=== PATIENT | male | born 1990 | race Caucasian/White ===

== ENCOUNTER 2018-01-26 12:47 | Emergency (ER) | payer SELFPAY ==
[~2018-01-26] VITALS: Ht 172.7 cm; Wt 59.0 kg
[2018-01-26 13:01] VITALS: BP 120/56; PULSE 83; RESP 20; TEMP 98.1; O2SAT 99
[2018-01-26] MEDS ORDERED: SUBO2MIS SL (13:23)
[2018-01-26 13:55] LABS: AUTOMATED NEUTROPHIL # 4.6 TH/MM3 (1.8-7.7); BASOPHIL # 0.1 TH/MM3 (0-0.2); BASOPHIL % 0.9 % (0.0-2.0); EOSINOPHIL # 0.2 TH/MM3 (0-0.4); HEMATOCRIT 37.1 % (39.0-51.0); HEMOGLOBIN 13.6 GM/DL (13.0-17.0); LYMPH % 17.9 % (9.0-44.0); LYMPHOCYTE # 1.2 TH/MM3 (1.0-4.8); MEAN CELL VOLUME 86.7 FL (80.0-100.0); MEAN CORPUSCULAR HEMOGLOBIN 31.9 PG (27.0-34.0); MEAN PLATELET VOLUME 8.7 FL (7.0-11.0); MONO % 8.9 % (0.0-8.0); MONOCYTE # 0.6 TH/MM3 (0-0.9); NEUT % 69.3 % (16.0-70.0); PLATELET COUNT 292 TH/MM3 (150-450); RED BLOOD COUNT 4.27 MIL/MM3 (4.50-5.90); RED CELL DISTRIBUTION WIDTH 13.1 % (11.6-17.2); WHITE BLOOD COUNT 6.6 TH/MM3 (4.0-11.0)
[2018-01-26 13:57] LABS: MEAN CORPUSCULAR HGB CONC 36.7 % (32.0-36.0)
[2018-01-26 14:07] LABS: ALBUMIN 3.6 GM/DL (3.4-5.0); AST (GOT) 25 U/L (15-37); BLOOD UREA NITROGEN 4 MG/DL (7-18); CHLORIDE 103 MEQ/L (98-107); CREATININE 0.75 MG/DL (0.60-1.30); GLOMERULAR FILTRATION RATE 126 ML/MIN (>89); GLUCOSE,RANDOM 90 MG/DL (74-106); SODIUM (NA) 141 MEQ/L (136-145)
[2018-01-26 14:08] LABS: ALT (GPT) 39 U/L (12-78)
[2018-01-26 14:10] LABS: ALKALINE PHOSPHATASE 46 U/L (45-117); TOTAL BILIRUBIN ADULT 0.5 MG/DL (0.2-1.0); TOTAL PROTEIN 7.7 GM/DL (6.4-8.2)
--- NOTE | 2018-01-26 14:29 | PD ---
HPI Chief Complaint: Suicide Ideation/Attempt Time Seen by Provider: 13:06 Travel History International Travel<30 days: No Contact w/Intl Traveler<30days: No Traveled to known affect area: No History of Present Illness HPI Patient is a 28 year old male who comes in because he says "I'm going to go hurt someone or clau someone." He says that he moved here from [place] after breaking up with his girlfriend, to live with his mom. He says that he was on suboxone, but he ran out. He says he was depressed, so he started using drugs again. He says that he was kicked out of his mother's apartment and now is homeless. He says he is "heroine sick," but when asked to describe symptoms, he cannot. When asked if he is suicidal, he just talks about how he is homeless and has nothing. He has no medical complaints currently. Severity is mild. PFSH Past Medical History Medical History: Denies Significant Hx Past Surgical History Surgical History: No Previous Surgery Social History Alcohol Use: No Tobacco Use: No Substance Use: No Allergies-Medications (Allergen,Severity, Reaction): Coded Allergies: No Known Allergies (Unverified , 01/26/18) Reported Meds & Prescriptions Reported Meds & Active Scripts Active Reported Suboxone Sublingual Film (Buprenorphine-Naloxone Sublingual Film) 2-0.5 Mg Film 1 Film SL Unique ID number required: Review of Systems Except as stated in HPI: all other systems reviewed are Neg General / Constitutional: No: Fever, Chills HENT: No: Headaches, Lightheadedness Cardiovascular: No: Chest Pain or Discomfort Respiratory: No: Shortness of Breath Gastrointestinal: No: Nausea, Vomiting Skin: No Rash, No Change in Pigmentation, No Lesions Neurologic: No: Weakness, Dizziness Physical Exam Narrative GENERAL: Awake and alert, in no acute distress. SKIN: Focused skin assessment warm/dry. No wounds or signs of infection. HEAD: Atraumatic. Normocephalic. EYES: Pupils equal and round. No scleral icterus. No injection or drainage. ENT: No nasal bleeding or discharge. Mucous membranes pink and moist. NECK: Trachea midline. No JVD. CARDIOVASCULAR: Regular rate and rhythm. No murmur appreciated. RESPIRATORY: No accessory muscle use. Clear to auscultation. Breath sounds equal bilaterally. GASTROINTESTINAL: Abdomen soft, non-tender, nondistended. MUSCULOSKELETAL: No obvious deformities. No clubbing. No cyanosis. No edema. NEUROLOGICAL: Awake and alert. No obvious cranial nerve deficits. Motor grossly within normal limits. Normal speech. PSYCHIATRIC: Appropriate mood and affect; insight and judgment normal. Data Data Last Documented VS Vital Signs Date Time Temp Pulse Resp B/P (MAP) Pulse Ox O2 Delivery O2 Flow Rate FiO2 01/26/18 13:01 98.1 83 20 120/56 (77) 99 Orders Orders Complete Blood Count With Diff (01/26/18 13:17) Comprehensive Metabolic Panel (01/26/18 13:17) Psych Screen (01/26/18 13:17) Drug Screen, Random Urine (01/26/18 13:17) Alcohol (Ethanol) (01/26/18 13:17) Labs Laboratory Tests Test 01/26/18 13:25 White Blood Count 6.6 TH/MM3 Red Blood Count 4.27 MIL/MM3 Hemoglobin 13.6 GM/DL Hematocrit 37.1 % Mean Corpuscular Volume 86.7 FL Mean Corpuscular Hemoglobin 31.9 PG Mean Corpuscular Hemoglobin Concent 36.7 % Red Cell Distribution Width 13.1 % Platelet Count 292 TH/MM3 Mean Platelet Volume 8.7 FL Neutrophils (%) (Auto) 69.3 % Lymphocytes (%) (Auto) 17.9 % Monocytes (%) (Auto) 8.9 % Eosinophils (%) (Auto) 3.0 % Basophils (%) (Auto) 0.9 % Neutrophils # (Auto) 4.6 TH/MM3 Lymphocytes # (Auto) 1.2 TH/MM3 Monocytes # (Auto) 0.6 TH/MM3 Eosinophils # (Auto) 0.2 TH/MM3 Basophils # (Auto) 0.1 TH/MM3 CBC Comment AUTO DIFF Differential Comment AUTO DIFF CONFIRMED Blood Urea Nitrogen 4 MG/DL Creatinine 0.75 MG/DL Random Glucose 90 MG/DL Total Protein 7.7 GM/DL Albumin 3.6 GM/DL Calcium Level 9.0 MG/DL Alkaline Phosphatase 46 U/L Aspartate Amino Transf (AST/SGOT) 25 U/L Alanine Aminotransferase (ALT/SGPT) 39 U/L Total Bilirubin 0.5 MG/DL Sodium Level 141 MEQ/L Potassium Level 3.2 MEQ/L Chloride Level 103 MEQ/L Carbon Dioxide Level 28.0 MEQ/L Anion Gap 10 MEQ/L Estimat Glomerular Filtration Rate 126 ML/MIN Urine Opiates Screen POS Urine Barbiturates Screen NEG Urine Amphetamines Screen NEG Urine Benzodiazepines Screen POS Urine Cocaine Screen POS Urine Cannabinoids Screen POS Ethyl Alcohol Level LESS THAN 3 MG/DL MDM Medical Decision Making Medical Screen Exam Complete: Yes Emergency Medical Condition: Yes Differential Diagnosis intoxication vs psychosis vs suicidal ideation Narrative Course Patient is a 28 year old male who comes in because he says he is withdrawing from heroine and he will clau someone. He says "I just can't take it anymore." Labs sent show no acute abnormalities. Tox screen positive for Benzos, opiates, cocaine, marijuana. Medically cleared for psychiatric evaluation. Diagnosis Primary Impression: Intoxication by drug Qualified Codes: F19.920 - Other psychoactive substance use, unspecified with intoxication, uncomplicated Sana Nelson MD Jan 26, 2018 14:29
[2018-01-27 07:42] VITALS: BP 124/65; PULSE 77; RESP 16; O2SAT 95
--- NOTE | 2018-01-27 12:00 | PD ---
Physical Exam Time Seen by Provider: 11:59 Narrative ARMIN Segura has evaluated the patient and cleared the patient for discharge. Data Data Last Documented VS Vital Signs Date Time Temp Pulse Resp B/P (MAP) Pulse Ox O2 Delivery O2 Flow Rate FiO2 01/27/18 07:42 77 16 124/65 (84) 95 Room Air 01/26/18 13:01 98.1 Orders Orders Complete Blood Count With Diff (01/26/18 13:17) Comprehensive Metabolic Panel (01/26/18 13:17) Psych Screen (01/26/18 13:17) Drug Screen, Random Urine (01/26/18 13:17) Alcohol (Ethanol) (01/26/18 13:17) Diet Regular Basic (01/26/18 Dinner) Diet Regular Basic (01/27/18 Breakfast) Ed Discharge Order (01/27/18 12:03) Labs Laboratory Tests Test 01/26/18 13:25 White Blood Count 6.6 TH/MM3 Red Blood Count 4.27 MIL/MM3 Hemoglobin 13.6 GM/DL Hematocrit 37.1 % Mean Corpuscular Volume 86.7 FL Mean Corpuscular Hemoglobin 31.9 PG Mean Corpuscular Hemoglobin Concent 36.7 % Red Cell Distribution Width 13.1 % Platelet Count 292 TH/MM3 Mean Platelet Volume 8.7 FL Neutrophils (%) (Auto) 69.3 % Lymphocytes (%) (Auto) 17.9 % Monocytes (%) (Auto) 8.9 % Eosinophils (%) (Auto) 3.0 % Basophils (%) (Auto) 0.9 % Neutrophils # (Auto) 4.6 TH/MM3 Lymphocytes # (Auto) 1.2 TH/MM3 Monocytes # (Auto) 0.6 TH/MM3 Eosinophils # (Auto) 0.2 TH/MM3 Basophils # (Auto) 0.1 TH/MM3 CBC Comment AUTO DIFF Differential Comment AUTO DIFF CONFIRMED Blood Urea Nitrogen 4 MG/DL Creatinine 0.75 MG/DL Random Glucose 90 MG/DL Total Protein 7.7 GM/DL Albumin 3.6 GM/DL Calcium Level 9.0 MG/DL Alkaline Phosphatase 46 U/L Aspartate Amino Transf (AST/SGOT) 25 U/L Alanine Aminotransferase (ALT/SGPT) 39 U/L Total Bilirubin 0.5 MG/DL Sodium Level 141 MEQ/L Potassium Level 3.2 MEQ/L Chloride Level 103 MEQ/L Carbon Dioxide Level 28.0 MEQ/L Anion Gap 10 MEQ/L Estimat Glomerular Filtration Rate 126 ML/MIN Urine Opiates Screen POS Urine Barbiturates Screen NEG Urine Amphetamines Screen NEG Urine Benzodiazepines Screen POS Urine Cocaine Screen POS Urine Cannabinoids Screen POS Ethyl Alcohol Level LESS THAN 3 MG/DL MDM Supervised Visit with BAILEE: No Narrative Course ARMIN Segura has evaluated the patient and cleared the patient for discharge. Patient contracts safety. Denies suicidal or homicidal ideations. Patient will be provided community resource packet to /[facility] for follow-up. Has friends and family for support. Patient was medically cleared by alternate provider prior to psych screening. Patient has been evaluated by psychiatry and and is now cleared for discharge. Diagnosis Primary Impression: Substance induced mood disorder Referrals: [facility] (Out patient) call for appointment Medication Management [facility] Primary Care Physician Psychiatrist Roslyn [facility] Patient Instructions: General Instructions, Mood Disorders (ED), Polysubstance Abuse (ED) Departure Forms: Tests/Procedures Additional Instruction: Contract safety to your self and others Follow-up with psychiatry Follow-up with primary care provider Follow-up with Vamsi Ha Return to the emergency department immediately with worsening of symptoms Med/Other Pt SpecificInfo: No Change to Meds, No Meds Exist/No RX given Disposition: 01 DISCHARGE HOME Condition: Stable Christal Ramirez Jan 27, 2018 12:00
--- NOTE | 2018-01-27 12:11 | PD ---
History of Present Illness Chief Complaint: Suicide Ideation/Attempt Time Seen by Provider: 11:25 Travel History International Travel<30 Days: No Contact w/Intl Traveler<30days: No Known affected area: No Legal Status Legal Status: Voluntary History of Present Illness: This is a 28-year-old male who presents voluntarily to the emergency department reporting that he is homeless and feels helpless and homeless. Patient is unknown to this facility previously. He reports an extensive history of polysubstance abuse. Reviewed electronic medical record, labs, and discuss case with staff. Follow- up was performed in patient's room and J pod. Patient is awake, alert, and oriented. His speech is clear, logical, and organized. There is no indication of internal stimulation or thought blocking. I can elicit no delusional material. At this time patient denies being suicidal, homicidal, or having auditory or visual hallucinations. He has been provided with an extensive packet of resources in the community. Patient is future oriented as he additionally reports that he has been in contact with his family and is hopeful that his mother will send him a ticket to return back to [place] where he is from. Patient was encouraged to seek out help to stop utilizing illicit substances. He was advised to return to this facility if his condition worsened. [facility] Past Medical History Medical History: Denies Significant Hx Past Surgical History Surgical History: No Previous Surgery Psychiatric History Psychiatric History History of Inpatient Treatment: No Guns or firearms in home: No Social History Hx Alcohol Use: No Hx Tobacco Use: No Hx Substance Use: Yes Substance Use Type: Alcohol, Marijuana, Benzos (Valium,Xanax), Cocaine, Synth Opiates-Pain Pills Allergies-Medications (Allergen,Severity, Reaction): Coded Allergies: No Known Allergies (Unverified , 01/26/18) Reported Meds & Prescriptions Reported Meds & Active Scripts Active Reported Suboxone Sublingual Film (Buprenorphine-Naloxone Sublingual Film) 2-0.5 Mg Film 1 Film SL Unique ID number required: Mental Status Examination Appearance: Disheveled Consciousness: Alert Orientation: x4 Motor Activity: Normal gait Speech: Unremarkable Language: Adequate Fund of Knowledge: Adequate Attention and Concentration: Adequate Memory: Unremarkable Mood: Appropriate Affect: Appropriate Thought Process & Associations: Intact Thought Content: Appropriate Hallucination Type: None Delusion Type: None Suicidal Ideation: No Suicidal Plan: No Suicidal Intention: No Homicidal Ideation: No Homicidal Plan: No Homicidal Intention: No Insight: Adequate Judgment: Adequate [facility] Medical Decision Making Medical Record Reviewed: Yes Assessment/Plan 28-year-old single, white male who presented voluntarily to the ED for self- reported homelessness, helplessness, and hopelessness. Patient reports that he recently came down here from [place], [place]. He states that he has an extensive history of polysubstance abuse which he has continued since arriving in this area. This is born out by his toxicology screen which is positive for opiates, benzodiazepines, cocaine, and cannabinoids. Upon examination this morning he is awake, alert, and oriented 4. His speech is clear, logical, and organized. There is no internal stimulation. I can elicit no delusional materials. He does not appear to be thought blocking. He denies feeling suicidal, homicidal or having auditory or visual hallucinations. Patient does not meet [place] act criteria nor does he meet inpatient criteria at this time as he is neither a danger to himself or anyone else. He will be discharged with follow-up resources. He has been encouraged to continue to try to return back to [place] where his family resides. He was informed that should his condition worsen he should return to this facility for help. Additionally, he was advised to refrain from using illicit substances. Orders Orders Complete Blood Count With Diff (01/26/18 13:17) Comprehensive Metabolic Panel (01/26/18 13:17) Psych Screen (01/26/18 13:17) Drug Screen, Random Urine (01/26/18 13:17) Alcohol (Ethanol) (01/26/18 13:17) Diet Regular Basic (01/26/18 Dinner) Diet Regular Basic (01/27/18 Breakfast) Results Vital Signs Date Time Temp Pulse Resp B/P (MAP) Pulse Ox O2 Delivery O2 Flow Rate FiO2 01/27/18 07:42 77 16 124/65 (84) 95 Room Air 01/26/18 13:01 98.1 83 20 120/56 (77) 99 Laboratory Tests Test 01/26/18 13:25 White Blood Count 6.6 Red Blood Count 4.27 Hemoglobin 13.6 Hematocrit 37.1 Mean Corpuscular Volume 86.7 Mean Corpuscular Hemoglobin 31.9 Mean Corpuscular Hemoglobin Concent 36.7 Red Cell Distribution Width 13.1 Platelet Count 292 Mean Platelet Volume 8.7 Neutrophils (%) (Auto) 69.3 Lymphocytes (%) (Auto) 17.9 Monocytes (%) (Auto) 8.9 Eosinophils (%) (Auto) 3.0 Basophils (%) (Auto) 0.9 Neutrophils # (Auto) 4.6 Lymphocytes # (Auto) 1.2 Monocytes # (Auto) 0.6 Eosinophils # (Auto) 0.2 Basophils # (Auto) 0.1 CBC Comment AUTO DIFF Differential Comment AUTO DIFF CONFIRMED Blood Urea Nitrogen 4 Creatinine 0.75 Random Glucose 90 Total Protein 7.7 Albumin 3.6 Calcium Level 9.0 Alkaline Phosphatase 46 Aspartate Amino Transf (AST/SGOT) 25 Alanine Aminotransferase (ALT/SGPT) 39 Total Bilirubin 0.5 Sodium Level 141 Potassium Level 3.2 Chloride Level 103 Carbon Dioxide Level 28.0 Anion Gap 10 Estimat Glomerular Filtration Rate 126 Urine Opiates Screen POS Urine Barbiturates Screen NEG Urine Amphetamines Screen NEG Urine Benzodiazepines Screen POS Urine Cocaine Screen POS Urine Cannabinoids Screen POS Ethyl Alcohol Level LESS THAN 3 Diagnosis Primary Impression: Substance induced mood disorder Psychiatrically Cleared: Yes Referrals: [facility] (Out patient) call for appointment Medication Management Departure Forms: Tests/Procedures Patient Instructions: General Instructions Disposition: 01 DISCHARGE HOME Cleopatra Tobias Jan 27, 2018 12:11
== END 2018-01-27 13:00 | disposition home or self-care (01) ==
LOC: NEPD 12:47 → NEPJ 01-27 13:00
DX: F19.14 Other psychoactive substance abuse with psychoactive substance-induced mood disorder (principal); F19.129 Other psychoactive substance abuse with intoxication, unspecified; Z59.0 Homelessness
CPT/HCPCS: 80053; 80307; 85025; 99283